=== PATIENT | female | born 1990 | race Two or more races ===

== ENCOUNTER 2021-03-01 14:49 | Emergency (ER) | payer OTHER ==
[~2021-03-01] VITALS: Ht 175.3 cm; Wt 90.7 kg
[2021-03-01] MEDS ORDERED: ONDANSETRON HCL 4 MG/2 ML VIAL IV ONE (15:30)
[2021-03-01] MEDS ORDERED: SODIUM CHLORIDE 0.9% 1,000 ML IV ONE (15:30)
[2021-03-01] MEDS ORDERED: MORPHINE SULF INJ 2 MG/ML SYRINGE 1ML IV ONE (15:45)
[2021-03-01 16:56] LABS: Basophils # (auto) 0.1 10 ^3/uL (0-0.2); Mean Corpuscular Hemoglobin 26.3 pg (28.0-32.0); Mean Corpuscular Hgb Conc. 32.3 g/dL (32.0-36.0); Monocytes # (auto) 0.9 10 ^3/uL (0-1.3); Neutrophils # (auto) 12.2 10 ^3/uL (1.6-8.6); White Blood Cell 14.5 10^3/uL (4.4-10.8)
[2021-03-01 16:57] LABS: Basophils % (auto) 0.5 % (0.0-2.0); Eosinophils # (auto) 0.1 10 ^3/uL (0-0.8); Eosinophils % (auto) 0.9 % (0.0-7.0); Hematocrit 41.1 % (36.0-46.0); Hemoglobin 13.3 g/dL (12.2-16.2); Lymphocytes # (auto) 1.2 10 ^3/uL (0.4-5.4); Lymphocytes % (auto) 8.5 % (10.0-50.0); Mean Corpuscular Volume 81.4 fL (80.0-100.0); Monocytes % (auto) 6.2 % (0.0-12.0); Neutrophils % (auto) 83.9 % (37.0-80.0); Platelet Count (auto) 432 10^3/uL (140-450); Red Blood Cells 5.05 10^6/uL (4.0-5.20); Red Cell Distribution Width 14.4 % (11.8-14.3)
[2021-03-01 17:01] LABS: Urine Bacteria NONE SEEN /hpf (None Seen); Urine Blood 1+ /uL (Negative); Urine Mucus FEW (None Seen); Urine Specific Gravity 1.025 (1.001-1.035); Urine WBC <1 /hpf (0 - 5)
[2021-03-01 17:29] LABS: Calcium 8.6 mg/dL (8.5-10.1); Magnesium 2.1 mg/dL (1.6-2.6); Potassium 3.7 mmol/L (3.5-5.1)
[2021-03-01] MEDS ORDERED: cefTRIAXone 1GM/50ML D5W 50 ML IV ONE (17:30)
[2021-03-01 17:32] LABS: BUN/Creatinine Ratio 13.8; Bilirubin, Total 0.5 mg/dL (0.2-1.0); Total Protein 8.4 g/dL (6.4-8.2)
[2021-03-01 18:08] VITALS: BP 119/70
== END 2021-03-01 19:04 | disposition home or self-care (01) ==
LOC: ER 14:49
DX: K52.9 Noninfective gastroenteritis and colitis, unspecified (principal); F12.10 Cannabis abuse, uncomplicated; Z32.02 Encounter for pregnancy test, result negative
CPT/HCPCS: 36415; 74176; 80053; 81001; 81025; 82150; 83690; 83735; 84702; 85025; 96361; 96365; 96375; 99284; J0696; J2270; J2405; J7030

== ENCOUNTER 2021-05-27 12:45 | Emergency (ER) | payer MEDICAID ==
[~2021-05-27] VITALS: Ht 175.3 cm; Wt 90.7 kg
[2021-05-27 13:00] VITALS: BP 121/80
[2021-05-27 14:22] LABS: Basophils # (auto) 0.1 10 ^3/uL (0-0.2); Basophils % (auto) 1.2 % (0.0-2.0); Eosinophils # (auto) 0.2 10 ^3/uL (0-0.8); Eosinophils % (auto) 2.6 % (0.0-7.0); Hematocrit 42.1 % (36.0-46.0); Lymphocytes # (auto) 1.9 10 ^3/uL (0.4-5.4); Lymphocytes % (auto) 29.2 % (10.0-50.0); Mean Corpuscular Hemoglobin 27.1 pg (28.0-32.0); Mean Corpuscular Hgb Conc. 33.2 g/dL (32.0-36.0); Mean Corpuscular Volume 81.8 fL (80.0-100.0); Monocytes # (auto) 0.5 10 ^3/uL (0-1.3); Monocytes % (auto) 7.8 % (0.0-12.0); Neutrophils # (auto) 3.8 10 ^3/uL (1.6-8.6); Neutrophils % (auto) 59.2 % (37.0-80.0); Red Blood Cells 5.15 10^6/uL (4.0-5.20); Red Cell Distribution Width 14.2 % (11.8-14.3); White Blood Cell 6.4 10^3/uL (4.4-10.8)
[2021-05-27 14:44] LABS: Albumin 3.8 g/dL (3.4-5.0); Anion Gap 6 (5-15); Blood Urea Nitrogen 7 mg/dL (7-18); Calcium 8.7 mg/dL (8.5-10.1); Carbon Dioxide 22 mmol/L (21-32); Chloride 110 mmol/L (98-107); Glucose 76 mg/dL (74-106); Potassium 3.9 mmol/L (3.5-5.1); Sodium 138 mmol/L (136-145)
[2021-05-27 14:51] LABS: Alanine Aminotransferase 25 U/L (13-56); Alkaline Phosphatase 93 U/L (45-117); Aspartate Aminotransferase 16 U/L (15-37); BUN/Creatinine Ratio 12.1; Bilirubin, Total 0.7 mg/dL (0.2-1.0); GFR African American 157 mL/min; GFR Non-African American 130 mL/min; Total Protein 8.2 g/dL (6.4-8.2)
[2021-05-27 20:13] LABS: Urine Bacteria FEW /hpf (None Seen); Urine Blood 2+ /uL (Negative); Urine Mucus FEW (None Seen); Urine Specific Gravity 1.021 (1.001-1.035); Urine WBC 65 /hpf (0 - 5)
[2021-05-27] MEDS ORDERED: IBUPROFEN 600 MG TAB PO ONE (21:00)
[2021-05-27] MEDS ORDERED: FAMOTIDINE 20 MG TAB PO ONE (21:00)
[2021-05-27] MEDS ORDERED: CEPHALEXIN 250 MG CAP PO ONE ×2 (21:56→22:00)
== END 2021-05-27 22:16 | disposition home or self-care (01) ==
LOC: ER 12:45
DX: R07.89 Other chest pain (principal); F17.210 Nicotine dependence, cigarettes, uncomplicated; F12.10 Cannabis abuse, uncomplicated; F14.10 Cocaine abuse, uncomplicated
CPT/HCPCS: 36415; 71045; 80053; 81001; 84484; 85025

== ENCOUNTER 2022-01-02 14:21 | Emergency (ER) | payer MEDICAID ==
[~2022-01-02] VITALS: Ht 175.3 cm; Wt 86.2 kg
[2022-01-02] MEDS ORDERED: ALUM & MAG HYDROX-SIMETH LIQ(MAALOX) 30 ML PO ONE (15:00)
[2022-01-02] MEDS ORDERED: FAMOTIDINE 20 MG TAB PO ONE (15:00)
[2022-01-02] MEDS ORDERED: LIDOCAINE VISCOUS 2% 15ML UD PO ONE (15:00)
[2022-01-02] MEDS ORDERED: ONDANSETRON ODT 4 MG TAB PO ONE (15:00)
[2022-01-02 17:25] VITALS: BP 139/94
== END 2022-01-02 17:28 | disposition home or self-care (01) ==
LOC: ER 14:21
DX: K29.70 Gastritis, unspecified, without bleeding (principal); K21.9 Gastro-esophageal reflux disease without esophagitis; F17.210 Nicotine dependence, cigarettes, uncomplicated
CPT/HCPCS: 81025; 99284; Q0162

== ENCOUNTER 2022-01-19 15:25 | Emergency (ER) | payer MEDICAID ==
[~2022-01-19] VITALS: Ht 175.3 cm; Wt 86.2 kg
[2022-01-19 17:27] LABS: Urine Amorphous Crystal FEW /hpf (None Seen); Urine Bacteria FEW /hpf (None Seen); Urine Blood 2+ /uL (Negative); Urine Specific Gravity 1.019 (1.001-1.035); Urine WBC 9 /hpf (0 - 5)
[2022-01-19] MEDS ORDERED: KETOROLAC TROMETH 60MG/2ML VIAL IM ONE (20:15)
[2022-01-19] MEDS ORDERED: NAP500T PO (21:14)
[2022-01-19 23:40] VITALS: BP 140/82
== END 2022-01-19 23:48 | disposition home or self-care (01) ==
LOC: ER 15:25
DX: S33.5XXA Sprain of ligaments of lumbar spine, initial encounter (principal); F17.210 Nicotine dependence, cigarettes, uncomplicated; F12.10 Cannabis abuse, uncomplicated; F14.10 Cocaine abuse, uncomplicated; X50.9XXA Other and unspecified overexertion or strenuous movements or postures, initial encounter; Y93.89 Activity, other specified; Y92.89 Other specified places as the place of occurrence of the external cause; Y99.8 Other external cause status
CPT/HCPCS: 72131; 81001; 81025; 96372; 99284; J1885

== ENCOUNTER 2023-11-14 18:19 | Emergency (ER) | payer MEDICAID ==
[~2023-11-14] VITALS: Ht 175.3 cm; Wt 93.3 kg
[~2023-11-14 18:19] MED LIST: NAP500T PO
[2023-11-14 23:17] LABS: Basophils # (auto) 0.1 10 ^3/uL (0-0.2); Basophils % (auto) 0.5 % (0.0-2.0); Eosinophils # (auto) 0 10 ^3/uL (0-0.8); Eosinophils % (auto) 0.4 % (0.0-7.0); Hematocrit 35.9 % (36.0-46.0); Hemoglobin 11.7 g/dL (12.2-16.2); Lymphocytes # (auto) 1.9 10 ^3/uL (0.4-5.4); Lymphocytes % (auto) 15.5 % (10.0-50.0); Mean Corpuscular Hgb Conc. 32.5 g/dL (32.0-36.0); Mean Corpuscular Volume 86.2 fL (80.0-100.0); Monocytes # (auto) 0.7 10 ^3/uL (0-1.3); Monocytes % (auto) 6.1 % (0.0-12.0); Neutrophils # (auto) 9.3 10 ^3/uL (1.6-8.6); Neutrophils % (auto) 77.5 % (37.0-80.0); Red Blood Cells 4.16 10^6/uL (4.0-5.20); Red Cell Distribution Width 12.9 % (11.8-14.3)
[2023-11-14] MEDS ORDERED: ACETAMINOPHEN 325 MG TAB PO ONE (23:30)
[2023-11-14 23:31] LABS: Alanine Aminotransferase 10 U/L (7-40); Albumin 4.1 g/dL (3.2-4.8); Alkaline Phosphatase 93 U/L (46-116); Anion Gap 9 (5-15); Aspartate Aminotransferase 11 U/L (13-40); Calcium 8.4 mg/dL (8.7-10.4); Carbon Dioxide 21 mmol/L (20-30); Chloride 105 mmol/L (98-107); Glucose 80 mg/dL (74-106); Lipase 41 U/L (12-53); Potassium 3.7 mmol/L (3.5-5.1); Sodium 135 mmol/L (136-145)
[2023-11-14 23:32] LABS: Bilirubin, Total 0.5 mg/dL (0.2-1.0); Total Protein 6.9 g/dL (5.7-8.2)
[2023-11-14 23:33] LABS: BUN/Creatinine Ratio 9.1 (10.0-20.0); Blood Urea Nitrogen < 5 mg/dL (9-23)
[2023-11-14 23:55] VITALS: BP 108/61; PULSE 90; RESP 16; TEMP 98; O2SAT 100
[2023-11-15] MEDS ORDERED: SODIENE35 RE (00:10)
[2023-11-15] MEDS ORDERED: FLEET ENEMA(ADULT) 135 ML PR ONE (00:15)
[2023-11-15] MEDS ORDERED: DOCU-94 PO (01:03)
== END 2023-11-15 01:36 | disposition home or self-care (01) ==
LOC: ER 18:19
DX: O26.892 Other specified pregnancy related conditions, second trimester (principal); K59.00 Constipation, unspecified; Z3A.26 26 weeks gestation of pregnancy
CPT/HCPCS: 36415; 80053; 83690; 85025

== ENCOUNTER 2024-05-21 08:57 | Emergency (ER) | payer MEDICAID ==
[~2024-05-21] VITALS: Ht 175.3 cm; Wt 91.0 kg
[~2024-05-21 08:57] MED LIST changes: +DOCU-94 PO; +SODIENE35 RE
[2024-05-21 09:18] LABS: Basophils # (auto) 0.1 10 ^3/uL (0-0.2); Basophils % (auto) 1.3 % (0.0-2.0); Eosinophils # (auto) 0.3 10 ^3/uL (0-0.8); Eosinophils % (auto) 4.8 % (0.0-7.0); Hematocrit 41.2 % (36.0-46.0); Hemoglobin 13.5 g/dL (12.2-16.2); Lymphocytes # (auto) 2.4 10 ^3/uL (0.4-5.4); Lymphocytes % (auto) 33.8 % (10.0-50.0); Mean Corpuscular Hemoglobin 28.1 pg (28.0-32.0); Mean Corpuscular Hgb Conc. 32.8 g/dL (32.0-36.0); Mean Corpuscular Volume 85.6 fL (80.0-100.0); Monocytes # (auto) 0.6 10 ^3/uL (0-1.3); Monocytes % (auto) 8.3 % (0.0-12.0); Neutrophils # (auto) 3.6 10 ^3/uL (1.6-8.6); Neutrophils % (auto) 51.8 % (37.0-80.0); Nucleated Red Blood Cells % 0.1 %; Red Blood Cells 4.81 10^6/uL (4.0-5.20); Red Cell Distribution Width 12.6 % (11.8-14.3)
[2024-05-21 09:37] LABS: Alanine Aminotransferase 16 U/L (7-40); Albumin 4.2 g/dL (3.2-4.8); Alkaline Phosphatase 68 U/L (46-116); Anion Gap 4 (5-15); Aspartate Aminotransferase 9 U/L (13-40); BUN/Creatinine Ratio 14.9 (10.0-20.0); Blood Urea Nitrogen 10 mg/dL (9-23); Calcium 9.1 mg/dL (8.5-10.1); Carbon Dioxide 25 mmol/L (20-30); Chloride 108 mmol/L (98-107); Glucose 95 mg/dL (74-106); Potassium 3.8 mmol/L (3.5-5.1); Sodium 137 mmol/L (136-145)
[2024-05-21 09:38] LABS: Total Protein 6.7 g/dL (5.7-8.2)
[2024-05-21 09:52] LABS: Bilirubin, Total 0.9 mg/dL (0.2-1.0)
[2024-05-21 09:53] LABS: Urine Bacteria FEW /hpf (None Seen); Urine Blood Negative /uL (Negative); Urine Clarity Clear (Clear); Urine Color Light-Yellow (Yellow); Urine Mucus FEW (None Seen); Urine Protein, UAD Negative (Negative); Urine Specific Gravity 1.027 (1.001-1.035); Urine Urobilinogen Normal (Negative); Urine WBC 8 /hpf (0 - 5); Urine pH 5.5 (5.0-9.0)
[2024-05-21 11:56] VITALS: BP 104/69; PULSE 61; RESP 16; TEMP 98.1; O2SAT 99
[2024-05-21] MEDS ORDERED: CIPR-173 PO (12:04)
== END 2024-05-21 13:07 | disposition home or self-care (01) ==
LOC: ER 08:57
DX: R07.89 Other chest pain (principal); N39.0 Urinary tract infection, site not specified; Z87.19 Personal history of other diseases of the digestive system
CPT/HCPCS: 36415; 71045; 80053; 81001; 81025; 84484; 85025; 85379; 93005

== ENCOUNTER 2025-09-29 11:08 | Emergency (ER) | payer MEDICAID ==
[~2025-09-29] VITALS: Ht 175.3 cm; Wt 96.7 kg
[~2025-09-29 11:08] MED LIST changes: +CIPR-173 PO
[2025-09-29] MEDS: ONDANSETRON ODT 4 MG TAB PO ONE (11:56)
[2025-09-29] MEDS: FAMOTIDINE 20 MG TAB PO ONE (11:56)
[2025-09-29] MEDS: MAALOX PLUS or MAALOX 30 ML PO ONE (11:56)
--- NOTE | 2025-09-29 11:57 | ED.PDOC ---
History of Present Illness HPI Comments 35-year-old female presents to the ER with a prior medical history of high lipids, gastritis, gallstones in the chief complaint of N/V. Patient reports on having had N/D, dizziness, shortness of breath and an abdomen distentions for the past 2 hours associated with sharp chest pain which started yesterday Denies any other symptoms at this time. Denies chills, fever, /D. No other associated symptoms, modifiers, recent injuries or sick contacts present at this time. Chief Complaint: Nausea/Vomiting Time Seen by MD: 11:15 Primary Care Provider: NONE Reviewed Notes: Nurses Notes, Medications, Allergies Allergies: Coded Allergies: NO KNOWN ALLERGIES (Unverified , 03/01/21) Home Meds Active Scripts Ciprofloxacin Hcl (Cipro) 500 Mg Tab, 1 TAB PO BID, #14 TAB Prov:ANDREA BENITES MD 05/21/24 Docusate Sodium (Colace) 100 Mg Cap, 1 CAP PO BID PRN, #30 CAP 0 Refills Prov:LUIS MELGOZA TIRE BUILDER OPERATOR 11/15/23 Sodium Phosphates (FLEET ENEMA SIX PACK) Enema Debbie, 1 APPLIC RE DAILY PRN, #1 PACK 0 Refills Prov:LUIS MELGOZA TIRE BUILDER OPERATOR 11/15/23 Naproxen (NAPROSYN TABLET) 500 Mg Tb, 1 TAB PO BID, #60 TAB 1 Refill Prov:SHANTELLE CLARK MD 01/19/22 Information Source: Patient Mode of Arrival: Ambulatory Severity: Moderate Timing: Hours Duration: Since onset, Hours Prehospital treatment: None Past Medical History PAST MEDICAL HISTORY: Gallstones, High Lipids Past Medical History (Other): Gastritis Surgical History: Denies all surgeries YOUTH CARE SPECIALIST History: Denies all YOUTH CARE SPECIALIST Hx Family History Family History: Reviewed,noncontributory to illness, Unknown Social History Smoker: Non-Smoker Alcohol: Occasionally Drugs: Denies Drug Use Lives In: Home Constitutional: denies: chills, diaphoresis, fatigue, fever, malaise, sweats, weakness, others EENTM: denies: blurred vision, double vision, ear bleeding, ear discharge, ear drainage, ear pain, ear ringing, eye pain, eye redness, hearing loss, mouth pain, mouth swelling, nasal discharge, nose bleeding, nose congestion, nose pain, photophobia, tearing, throat pain, throat swelling, voice changes, others Respiratory: reports: shortness of breath; denies: cough, hemoptysis, orthopnea, SOB at rest, SOB with excertion, stridor, wheezing, others Cardiovascular: reports: chest pain; denies: dizzy spells, diaphoresis, Dyspnea on exertion, edema, irregular heart beat, left arm pain, lightheadedness, palpitations, PND, syncope, others Gastrointestinal: reports: diarrhea, nausea; denies: abdomen distended, abdominal pain, blood streaked bowels, constipated, dysphagia, difficulty swallowing, hematemesis, melena, poor appetite, poor fluid intake, rectal bleeding, rectal pain, vomiting, others Genitourinary: denies: abnormal vagina bleeding, burning, dyspareunia, dysuria, flank pain, frequency, hematuria, incontinence, pain, , vagina discharge, urgency, others Neurological: reports: dizziness; denies: fainting, headache, left sided numbness, left sided weakness, numbness, paresthesia, pre-existing deficit, right sided numbness, right sided weakness, seizure, speech problems, tingling, tremors, weakness, others Musculoskeletal: denies: back pain, gout, joint pain, joint swelling, muscle pain, muscle stiffness, neck pain, others Integumetry: denies: bruises, change in color, change in hair/nails, dryness, laceration, lesions, lumps, rash, wounds, others Allergic/Immunocompromised: denies: Difficulty Healing, Frequent Infections, Hives, Itching, others Hematologic/Lymphatic: denies: anemia, blood clots, easy bleeding, easy bruising, swollen glands, others Endocrine: denies: excessive hunger, excessive sweating, excessive thirst, excessive urination, flushing, intolerance to cold, intolerance to heat, unexplained weight gain, unexplained weight loss, others Psychiatric: denies: anxiety, bipolar disorder, depression, hopeless, panic disorder, schizophrenia, sleepless, suicidal, others All Other Systems: Reviewed and Negative Physical Exam Exam Comments Abdomen distention General Appearance: No Apparent Distress, Normal HEENT: Normal ENT Inspection, Pharynx Normal, TMs Normal Neck: Full Range of Motion, Non-Tender, Normal, Normal Inspection Respiratory: Chest Non-Tender, Lungs Clear, No Accessory Muscle Use, No Respiratory Distress, Normal Breath Sounds Cardiovascular: No Edema, No JVD, No Murmur, No Gallop, Normal Peripheral Pulse s, Regular Rate/Rhythm Breast Exam: Deferred Gastrointestinal: No Organomegaly, Non Tender, No Pulsatile Mass, Normal Bowel Sounds, Soft Genitalia: Deferred Pelvic: Deferred Rectal: Deferred Extremities: No calf tenderness, Normal capillary refill, Normal inspection, Normal range of motion, Non-tender, No pedal edema Musculoskeletal : Apperance: Normal Neurologic: Alert, breast puller II-XII nml as Tested, No Motor Deficits, Normal Affect, Normal Mood, No Sensory Deficits Cerebellar Function: Normal Reflexes: Normal Skin: Dry, Normal Color, Warm Lymphatic: No Adenopathy Was a procedure done? Was a procedure done?: No EKG EKG : Pulse Rate (adult): 81 Hardy: Normal Block: None Hypertrophy: None ST: Normal Comments EKG 1.:Sinus arrhythmia Differential Dx Considerations may include: See MDM X-Ray, Labs, Meds, VS Vital Signs Date Time Temp Pulse Resp B/P (MAP) Pulse Ox O2 Delivery O2 Flow Rate FiO2 09/29/25 14:45 98.2 61 16 121/81 (94) 98 98.2 09/29/25 11:58 81 09/29/25 11:50 97.5 69 16 105/60 (75) 97 97.5 09/29/25 11:50 69 16 97 Room Air 09/29/25 11:17 81 09/29/25 11:09 98.0 84 18 145/89 100 98.0 Lab Test 09/29/25 12:01 09/29/25 11:54 Range/Units Urine Color Colorless Yellow Urine Clarity Clear Clear Urine pH 5.5 5.0-9.0 Urine Specific [place] 1.005 1.001-1.035 Urine Protein Negative Negative Urine Ketones Negative Negative Urine Blood Trace H Negative /uL Urine Nitrite Negative Negative Urine Bilirubin Negative Negative Urine Urobilinogen Normal Negative mg/dL Urine Leukocyte Esterase Negative Negative /uL Urine RBC 1 0 - 4 /hpf Urine Microscopic WBC < 1 0-5 /HPF Urine Squamous Epithelial Cells Few <5 /hpf Urine Bacteria Few H None Seen /hpf Urine Glucose Normal Normal mg/dL White Blood Count 6.9 4.4-10.8 10^3/uL Red Blood Count 4.84 4.0-5.20 10^6/uL Hemoglobin 13.1 12.2-16.2 g/dL Hematocrit 39.5 36.0-46.0 % Mean Corpuscular Volume 81.7 80.0-100.0 fL Mean Corpuscular Hemoglobin 27.0 L 28.0-32.0 pg Mean Corpuscular Hemoglobin Concent 33.1 32.0-36.0 g/dL Red Cell Distribution Width 13.7 11.8-14.3 % Platelet Count 423 140-450 10^3/uL Mean Platelet Volume 7.9 6.9-10.8 fL Neutrophils (%) (Auto) 64.9 37.0-80.0 % Lymphocytes (%) (Auto) 24.8 10.0-50.0 % Monocytes (%) (Auto) 7.2 0.0-12.0 % Eosinophils (%) (Auto) 2.2 0.0-7.0 % Basophils (%) (Auto) 0.9 0.0-2.0 % Neutrophils # (Auto) 4.5 1.6-8.6 10 ^3/uL Lymphocytes # (Auto) 1.7 0.4-5.4 10 ^3/uL Monocytes # (Auto) 0.5 0-1.3 10 ^3/uL Eosinophils # (Auto) 0.2 0-0.8 10 ^3/uL Basophils # (Auto) 0.1 0-0.2 10 ^3/uL Nucleated Red Blood Cells 0.0 % Sodium Level 141 136-145 mmol/L Potassium Level 3.9 3.5-5.1 mmol/L Chloride Level 105 98-107 mmol/L Carbon Dioxide Level 25 20-31 mmol/L Anion Gap 11 5-15 Blood Urea Nitrogen 8 L 9-23 mg/dL Creatinine 0.67 0.550-1.02 mg/dL Glomerular Filtration Rate Calc 118 >90 mL/min BUN/Creatinine Ratio 11.9 10.0-20.0 Serum Glucose 81 74-106 mg/dL Calcium Level 9.4 8.7-10.4 mg/dL Current Medications Medications (Trade) Dose Ordered Sig/Yousuf Route Start Time Stop Time Status Last Admin Al Hydrox/Mg Hydrox/Simethicone (Maalox Plus) 15 ml ONCE ONCE PO 09/29/25 11:45 09/29/25 11:46 DC 09/29/25 11:56 Famotidine (Pepcid Tablet) 20 mg ONCE ONCE PO 09/29/25 11:45 09/29/25 11:46 DC 09/29/25 11:56 Ondansetron HCl (Zofran Po) 4 mg ONCE ONCE PO 09/29/25 11:45 09/29/25 11:46 DC 09/29/25 11:56 Time of 1ST Reevaluation: 11:45 Reevaluation 1ST: Unchanged Patient Education/Counseling: Diagnosis, Treatment, Prognosis Family Education/Counseling: No Family Present Additional Information MDM A 35-year-old female with a history of hyperlipidemia, gastritis, and cholelithiasis presents with nausea, vomiting, dizziness, and intermittent chest pain. Given the combination of GI and chest symptoms, the differential diagnosis included ACS, arrhythmia, biliary colic, GERD/gastritis flare, pancreatitis, electrolyte disturbance, dehydration, anemia, -related causes, PE, and viral illness. Workup: EKG: non-ischemic; normal sinus rhythm without ST/T wave abnormalities. CBC: benign; no leukocytosis, no anemia. BMP: benign; no renal dysfunction, electrolyte abnormalities, or metabolic derangement. UA: benign; no signs of UTI, no hematuria. Chest X-ray: benign; no consolidation, pneumothorax, or acute cardiopulmonary disease. No detected. Clinical picture not consistent with PE (no tachycardia, hypoxia, pleuritic pain, hemoptysis, estrogen use, or risk factors). ED Course / Treatment: The patient was treated symptomatically with Maalox, famotidine, and Zofran, with significant improvement in nausea, vomiting, and chest discomfort. Serial reassessments showed resolution of symptoms and hemodynamic stability. No ongoing chest pain, abdominal tenderness, or dizziness by time of discharge. Given her known history of gastritis and gallbladder disease, her presentation is most consistent with gastritis exacerbation versus dyspepsia, and no evidence of acute biliary tract disease or pancreatitis was seen on history, labs, or exam. Risk / Disposition: With resolved symptoms, reassuring diagnostics including a non-ischemic EKG and benign labs/imaging, and no red flags for cardiac, hepatobiliary, or emergent GI pathology, the patient is safe for outpatient management. I will discharge the patient home with a diagnosis of gastritis, supportive medications, return precautions, and outpatient follow-up. SEPSIS Sepsis Screen Date sepsis recognized/suspect: Sep 29, 2025 Time Sepsis recognized/suspect: 1111 Recent Procedure: No On Antibiotic Therapy: No Respiratory Rate >20: No Heart Rate >90: No Temp<36 C (96.8 F) or >38.3 C: No SBP <90 or MAP <65 mmHG: No New Acute Mental Status Change: No Is the patient on CPAP, BIPAP,: No Physician Orders Electrocardigram (09/29/25 11:21) Chest Portable (09/29/25 14:23) Vital Signs Date Time Temp Pulse Resp B/P (MAP) Pulse Ox O2 Delivery O2 Flow Rate FiO2 09/29/25 14:45 98.2 61 16 121/81 (94) 98 98.2 09/29/25 11:58 81 09/29/25 11:50 97.5 69 16 105/60 (75) 97 97.5 09/29/25 11:50 69 16 97 Room Air 09/29/25 11:17 81 09/29/25 11:09 98.0 84 18 145/89 100 98.0 Laboratory Tests Test 09/29/25 11:54 White Blood Count 6.9 10^3/uL (4.4-10.8) Medications Medications Dose Ordered Sig/Yousuf Route Start Time Stop Time Status Last Admin Dose Admin Al Hydrox/Mg Hydrox/Simethicone 15 ml ONCE ONCE PO 09/29/25 11:45 09/29/25 11:46 DC 09/29/25 11:56 Famotidine 20 mg ONCE ONCE PO 09/29/25 11:45 09/29/25 11:46 DC 09/29/25 11:56 Ondansetron HCl 4 mg ONCE ONCE PO 09/29/25 11:45 09/29/25 11:46 DC 09/29/25 11:56 Departure 1 Departure Time of Disposition: 15:10 Impression: Primary Impression: Gastritis Additional Impression: Acute chest pain Disposition: HOME / SELF CARE / HOMELESS Condition: Stable Additional Instructions: Your workup today is benign. This includes negative labs x-ray and EKG. You likely have gastritis. It is inflammation of your stomach. You Can take [id number] omeprazole 20 mg daily. For pain you can take the followinam: Ibuprofen 400mg with food Noon: Acetaminophen 1000mg 4pm: Ibuprofen 400mg with food 8pm: Acetaminophen 1000mg You should follow up with your regular doctor within one week to ensure you are doing better. If your symptoms worsen or you have any other concerns then please return to the ER. Discharged With: Self Critical Care Note Critical Care Time?: No Stability Stability form required: No I personally scribed for ANGELITA EUGENE MD ([email or web address]) on 09/29/25 at 11:57. Electronically submitted by Paulo Juarez ([employer] I personally scribed for ANGELITA EUGENE MD ([email or web address]) on 09/29/25 at 11:58. Electronically submitted by Paulo Juarez ([employer] I personally scribed for ANGELITA EUGENE MD ([email or web address]) on 09/29/25 at 11:58. Electronically submitted by Paulo Juarez ([employer] ANGELITA EUGENE MD Sep 29, 2025 11:57
[2025-09-29 12:58] LABS: Hematocrit 39.5 % (36.0-46.0); Hemoglobin 13.1 g/dL (12.2-16.2); Mean Corpuscular Hemoglobin 27.0 pg (28.0-32.0); Mean Corpuscular Volume 81.7 fL (80.0-100.0); Nucleated Red Blood Cells % 0.0 %
[2025-09-29 13:06] LABS: Urine Protein, UAD Negative (Negative)
[2025-09-29 13:07] LABS: Chloride 105 mmol/L (98-107); Potassium 3.9 mmol/L (3.5-5.1); Sodium 141 mmol/L (136-145)
[2025-09-29 13:08] LABS: Anion Gap 11 (5-15); Carbon Dioxide 25 mmol/L (20-31)
[2025-09-29 13:09] LABS: Calcium 9.4 mg/dL (8.7-10.4)
[2025-09-29 13:14] LABS: BUN/Creatinine Ratio 11.9 (10.0-20.0); Glucose 81 mg/dL (74-106)
[2025-09-29 13:16] LABS: Blood Urea Nitrogen 8 mg/dL (9-23)
[2025-09-29 14:45] VITALS: BP 121/81; PULSE 61; RESP 16; TEMP 98.2; O2SAT 98
--- NOTE | 2025-09-29 14:55 | DVH ---
XY CHEST PORTABLE, HISTORY: cp COMPARISON: XY CHEST XRAY 1 VIEW on DOS: 05/21/24, CHEST PORTABLE on DOS: 05/27/21 XY CHEST XRAY 1 VIEW on DOS: 05/21/24, CHEST PORTABLE on DOS: 05/27/21 TECHNICAL DATA: 1 view of the chest was obtained. FINDINGS: Lines and tubes: None Cardiomediastinal silhouette: normal Pulmonary vasculature: normal Lung expansion: normal Lung airspace: normal Lung interstitium: normal Pleura: normal Pneumothorax: no Bones: Unremarkable Other: Limited exam due to overlapping soft tissue density. IMPRESSION: No acute intrathoracic abnormality.
--- NOTE | 2025-09-30 08:57 | ECG ---
[facility] Test Date: 2025-09-29 Test Time: 11:17:16 Pat Name: CHRISTIANE CASTRO Department: ED Room: Gender: F Margarine Churn Operator: NAVIN : 1990 Requested By: ANGELITA EUGENE Order Number: [id number] Reading MD: Russ Middleton Measurements Intervals Lena Rate: 81 P: 16 IN: 105 QRS: 37 QRSD: 100 T: 9 QT: 381 QTc: 443 Interpretive Statements Sinus arrhythmia Ventricular premature complex Short IN interval Electronically Signed On 10-01-2025 17:55:08 PST by Russ Middleton Please click the below link to view image of tracing.
== END 2025-09-29 15:23 | disposition home or self-care (01) ==
LOC: ER 11:08
DX: K29.70 Gastritis, unspecified, without bleeding (principal); R07.89 Other chest pain; Z79.899 Other long term (current) drug therapy
CPT/HCPCS: 36415; 71045; 80048; 81001; 85025; 93005; 99285; Q0162